=== PATIENT | female | born 2000 | race Caucasian/White ===

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

== ENCOUNTER → 2022-06-06 | Outpatient (CLI) | payer BC, SELFPAY ==
--- NOTE | 2022-06-06 15:10 | CT_ITS ---
INDICATION: hx arachnoid cyst, now new onset cephalgia/headache EXAMINATION: CT BRAIN - CT Head or Brain W/O Contrast Injection TECHNIQUE: Multiple axial images were obtained of the head without intravenous contrast. A radiation dose optimization technique was used for this scan. IV Contrast dosage and agent: None. COMPARISON: 08/01/2021 FINDINGS: BRAIN PARENCHYMA: No intra- or extra-axial hemorrhage. No evidence of acute infarct. No intracranial mass or mass effect. There is preservation of the sosa/white matter interface. Stable cisterna magna versus arachnoid cyst. CSF SPACES: Appropriate for age. No hydrocephalus. Basal cisterns are patent. CALVARIUM, SKULL BASE, PARANASAL SINUSES AND MASTOID AIR CELLS: Clear. No discrete lytic or blastic abnormalities. ORBITS: Both globes, extraocular muscles, optic nerves and retrobulbar fat appear unremarkable. CT/Brain/Head without Contrast IMPRESSION: No acute intracranial findings. Electronically Signed: Sidney Juarez MD at 17:46 EDT ,
== END | disposition home or self-care (01) ==
LOC: CT 15:05
PROVIDERS: PCP Family Medicine; Referring Provider Family Medicine; Visit Provider Family Medicine
DX: G93.0 Cerebral cysts (principal); R51.9 Headache, unspecified
CPT/HCPCS: 70450

== ENCOUNTER → 2024-04-03 | Outpatient (CLI) | payer BC, SELFPAY ==
--- NOTE | 2024-04-03 14:40 | RAD_ITS ---
PROCEDURE: FINGER(S) MIN 2 VIEWS REASON FOR EXAM: Pain to the 4th and 5th digits. TECHNIQUE: 3 view(s) of the right 4th and 5th fingers COMPARISON: None RAD/Finger(s) Min 2 Views IMPRESSION: No radiopaque foreign body is seen. Satisfactory alignment is seen throughout. No significant arthritic process or joint narrowing is seen. No fracture site is evident. If clinical concern persists, short-term follow-up imaging may be obtained to r ule out a currently occult fracture. Reading Location: [id number]
== END | disposition home or self-care (01) ==
LOC: MTRAD 14:34
PROVIDERS: PCP Family Medicine
DX: M79.646 Pain in unspecified finger(s) (principal)
CPT/HCPCS: 73140